=== PATIENT | male | born 1980 | race Caucasian/White ===

== ENCOUNTER 2019-01-31 15:31 | Emergency (ER) | payer MEDICAID, SELFPAY ==
[2018-10-13 15:13] VITALS: BMI 25.7
[2019-01-31 15:32] VITALS: BP 142/75; PULSE 113; RESP 18; TEMP 36.8; O2SAT 98; BMI 23.5
--- NOTE | 2019-01-31 15:38 | ED.VIS.GEN ---
History of Present Illness Chief Complaint: Wound Check Informant: Patient Onset: Days Context: Sudden Onset - Initial injury occurred Thursday Timing: Intermittent Quality: Patient sustained laceration medial mid right foot Location: Patient sustained laceration medial mid right foot Current Severity: Mild Maximum Severity: Mild Worsened by: Nothing Relieved by: Nothing Associated Symptoms: No associated symptoms Narrative: Patient is a 38-year-old male presents with laceration mid medial right foot. This occurred Thursday. He denies fever, chills or night sweats. Denies a traumatic fever, murmur, SBE, IV drug use or being immune suppressed. He does admit to smoking and alcohol use. He has no other complaints. Prior similar symptoms: No Recent Illness/Hospitalization: No - Past Medical History (1) PTSD (post-traumatic stress disorder) Status: Chronic (2) Frequent headaches Status: Chronic (3) History of traumatic brain injury Status: Acute Comment: 07/19/14 fell off a roof on his head. Past Medical History - Allergies and Home Meds Allergies/Adverse Reactions: Allergies No Known Allergies Allergy (Verified 01/31/19 15:33) Primary Care Physician: Camille Taylor MD [Primary Care Provider] - Prior records reviewed: Yes Surgical History: noncontributory - Status post craniotomy secondary to traumatic brain injury Lives: Alone Smoking Status: Current every day smoker Alcohol: Rare Drugs: None Review of Systems General: Denies: Chills, Fever, Malaise, Subjective, Sweats, Weight loss, - Cardiovascular: Denies: Chest pain Respiratory: Denies: Dyspnea Gastrointestinal: Denies: Nausea, Vomiting Neurological: Denies: Weakness, Parasthesia, Numbness Hematologic: Denies: Easy bruising, Easy bleeding Allergy: Denies: Uticaria Physical Exam Vital Signs/Narrative: Vital Signs Temp Pulse Resp BP Pulse Ox 01/31/19 15:32 98.3 F 113 H 18 142/75 H 98 Inital Vital Signs reviewed: Yes General: Well nourished, Well developed, No Acute Distress Head: Normocephalic, Trauma - Remote Eyes: Perrl, EOMI Cardiovascular: Regular rate, Regular rhythm Extremities: Nontender, No edema, - - DP and PT pulse are 2+ and symmetric Skin: Normal color, Rash - Area of erythema with warmth the size of a quarter medial mid right foot with no lymphangitis and no popliteal or inguinal lymphadenopathy., Trauma - 1.5 cm laceration with avulsed tissue Neurological: Alert, Oriented x3, Cranial nerves II-XII grossly intact, Normal Strength, Normal Sensation Psychological: Normal affect, Normal Mood Diagnostic/Tx/Re-eval - Medical Decision Making Patient has a laceration which has become infected. Patient was prescribed Bactrim and cephalexin. He was discharged with appropriate home-going instruction. He was instructed to have wound checked in 2 days. If unable to be checked by provider return to the ER for wound reevaluation. ED Disposition - Plan for ED Patient: Disposition: Home or Assisted Living Diagnosis: Infected laceration of skin Instructions: ED Laceration Infec Not Sutrd Prescriptions: Smz/Tmp Ds [Bactrim Ds] 1 tablet PO BID #14 tablet Cephalexin [Keflex] 500 mg PO 4X/DAY #28 capsule Referrals: Camille Taylor MD [Primary Care Provider] - 2 Days for wound check Additional Instructions: [facility]. If you are unable to be seen by your doctor in 2 days, return to the ER for wound reevaluation.
[2019-01-31] MEDS: Cephalexin 250 MG Capsule 500 MG PO (16:00)
[2019-01-31] MEDS: Smz/Tmp Ds Tablet 1 TABLET PO (16:00)
== END 2019-01-31 16:04 | disposition home or self-care (01) ==
PROVIDERS: Emergency Provider Emergency Medicine; Family Provider Internal Medicine; PCP Internal Medicine
DX: S91.311A Laceration without foreign body, right foot, initial encounter (principal); L08.9 Local infection of the skin and subcutaneous tissue, unspecified; X58.XXXA Exposure to other specified factors, initial encounter; Y93.9 Activity, unspecified; Y92.9 Unspecified place or not applicable; Y99.9 Unspecified external cause status; F43.10 Post-traumatic stress disorder, unspecified; F17.200 Nicotine dependence, unspecified, uncomplicated; Z79.899 Other long term (current) drug therapy; Z87.820 Personal history of traumatic brain injury
CPT/HCPCS: 99282

== ENCOUNTER 2019-03-20 12:54 | Emergency (ER) | payer MEDICAID, SELFPAY ==
[2019-03-20 12:55] VITALS: BP 131/85; PULSE 118; RESP 16; TEMP 37; O2SAT 99; BMI 23.6
--- NOTE | 2019-03-20 13:15 | RAD_ITS ---
STUDY: X-RAY - LEFT ELBOW REASON FOR EXAM: Male, 38 years old. Infection, swelling TECHNIQUE: AP and lateral view(s) of the elbow. COMPARISON: None. FINDINGS: Normal visualized humerus, radius and ulna. Normal radiocapitellar and ulnotrochlear articulations. There is significant soft tissue edema.. RAD/Elbow 2 Views IMPRESSION: Significant soft tissue edema suspicious for infectious/inflammatory process Electronically Signed: Jerry Carrizales, at 15:24 EDT Tel , Service support ,
--- NOTE | 2019-03-20 13:16 | ED.DCSUM_ITS ---
History of Present Illness Chief Complaint: Abscess Informant: Patient Onset: Days Current Severity: Mild Narrative: presents complaining of redness and inflammation and swelling over the left antecubital fossa region, indicates IV drug abuse, methamphetamines nothing else, he injected himself the other day he believes he got in the vein but is not sure and over the ensuing days he is noticed increased redness and swelling of the antecubital region of his arm,, he has no history of MRSA no direct trauma Past Medical History - Allergies and Home Meds Allergies/Adverse Reactions: Allergies No Known Allergies Allergy (Verified 03/20/19 12:58) Primary Care Physician: Camille Taylor MD [Primary Care Provider] - Past Medical History: - - IV drug abuse methamphetamine Surgical History: noncontributory - Status post craniotomy secondary to traumatic brain injury Smoking Status: Smoker, status unknown Review of Systems General: Denies: Chills, Fever, Sweats Eyes: Denies: Visual changes - bilaterally, Diplopia ENT: Denies: Rhinorrhea, Sore throat Cardiovascular: Denies: Chest pain, Palpitations Respiratory: Denies: Dyspnea, Cough, Dyspnea on exertion Gastrointestinal: Denies: Abdominal pain, Nausea, Vomiting, Diarrhea, Melena, Hematochezia Genitourinary: Denies: Dysuria, Hematuria, Frequency Musculoskeletal: Denies: Back pain, Extremity Pain Skin: Reports: Abscess. Denies: Rash, Wounds Neurological: Denies: Headache, Weakness, Numbness Physical Exam Vital Signs/Narrative: Vital Signs Temp Pulse Resp BP Pulse Ox 03/20/19 12:55 98.6 F 118 H 16 131/85 H 99 General: Well nourished, Well developed, No Acute Distress Head: Normocephalic, Atraumatic Eyes: Perrl, EOMI ENT: Moist mucous membranes, No rhinorrhea Neck: Supple, Nontender Cardiovascular: Regular rate, Regular rhythm, No murmurs Respiratory: No distress, CTA bilaterally, Chest nontender Abdomen: Soft, Nontender, Nondistended, Normal bowel sounds Back: Nontender, Normal Inspection Extremities: Nontender, No edema, - - Left antecubital area is inflamed there is redness there is edema extending into the distal humeral area and the more proximal forearm area, he is able to flex and extend the elbow, he is able to pronate and supinate the hand function is normal neurovascular function to the hand is normal there is certain the possibility of a cellulitis chemical reaction versus abscess Skin: Normal color, No rash Neurological: Alert, Oriented x3, Cranial nerves II-XII grossly intact, Normal Strength, Normal Sensation Psychological: Normal affect, Normal Mood Diagnostic/Tx/Re-eval - Medical Decision Making Given all of the above screening labs IV antibiotics Patient screening labs are generally unremarkable the white count 11 the sed rate is about 10 the CRP is 80 elbow x-ray shows soft tissue swelling no gas or foreign body I spoke with the hospitalist here for admission they indicate they feel he should be admitted to a facility that can have surgical back-up in case he requires debridement and currently at [facility] the plastic surgeon who would do that debridement is unavailable I then spoke with the orthopedic attending auctioneer tobacco at [facility] indicate they do not provide that type of procedure as that is usually done by plastic surgery at [facility]. I then spoke with the [facility] transfer line who explained to me that their plastic surgeon felt that the on-call hand surgeon should be contacted to discuss the case; I then spoke with the on-call [place] general hand surgeon who refused to accept the patient in transfer because he felt that this was in the scope of practice for the [facility] orthopedic surgeons even though I explained to him that this was not usually the case and that the plastic surgeon who normally handled these cases was unavailable. I then contacted [facility] transfer line and was unable to arrange for transfer to that facility I then spoke with the [facility] transfer line who accepted the patient in transfer to the [facility] emergency department under Dr. Posey and they would arrange for appropriate subspecialty consultation, I explained all this to the patient and he accepted transfer to [facility] Transfer stable Final impression Left antecubital infection cellulitis versus abscess related to IV drug abuse methamphetamine injection ED Disposition - Plan for ED Patient: Diagnosis: IV drug abuse, Abscess Referrals: Camille Taylor MD [Primary Care Provider] -
[2019-03-20 13:46] LABS: Absolute Lymphocyte Count 1.69 X10^3/ul (0.83-4.51); Absolute Neutrophil Count 8.2 X10^3/uL (2.0-7.7); Basophil# 0.02 X10^3/uL; Basophil% 0.2 % (0-1); Eosinophil# 0.12 X10^3/uL; Eosinophils% 1.1 % (0-5); Hematocrit 35.5 % (40-54); Hemoglobin 12.1 g/dl (13.0-16.5); Lymphocyte # 1.69 X10^3/ul (4.0); Lymphocyte % 15.2 % (19-41); Mean Corp Hgb Conc 34.1 g/gl (32-36); Mean Corpuscular Hgb 31.1 pg (27.0-32.0); Mean Corpuscular Volume 91.3 fL (80-94); Mean Platelet Vol. 7.7 fl (6.2-12.0); Monocyte# 1.05 X10^3/uL; Monocyte% 9.5 % (0-10); Neutrophil % 73.7 % (47-70); Platelet Count 185 K/mm3 (150-450); RBC Distribution Width CV 13.1 % (11.6-14.6); RBC Distribution Width SD 43.8 fl (35.1-43.9); Red Blood Count 3.89 M/mm3 (4.6-6.2); White Blood Count 11.1 K/mm3 (4.4-11.0)
[2019-03-20 13:58] LABS: POSITIVE COUNT NO; POSITIVE DIFFERENTIAL NO; POSITIVE MORPHOLOGY NO
[2019-03-20] MEDS: 0.9% Normal Saline 1,000 ML 1000 ML IV (13:59)
[2019-03-20 14:00] LABS: Anion Gap 5 (5-15); BUN 15 mg/dL (7-18); Calcium,Total 8.6 mg/dL (8.5-10.1); Chloride 104 mmol/L (98-107); Creatinine, Serum 0.88 mg/dL (0.70-1.30); EST Glomerular Filtration Rate 104 mL/min (>60); Est Glom Filt Rate - Afr Amer 125 mL/min (>60); Glucose 115 mg/dL (74-106); Potassium 3.8 mmol/L (3.5-5.1); Sodium Level 138 mmol/L (136-145)
--- NOTE | 2019-03-20 14:51 | NURSING ---
DR VAZQUEZ PRIDE
[2019-03-20 14:55] LABS: Erythrocyte Sedimentation Rate 7 mm/hr (0-15)
--- NOTE | 2019-03-20 15:37 | NURSING ---
CALLED [facility]. RN TALKING TO [facility]. FAXED FACESHEET
--- NOTE | 2019-03-20 16:22 | NURSING ---
ACCEPTED AT [facility]
--- NOTE | 2019-03-20 16:31 | NURSING ---
GOING TO ER AT [facility]
--- NOTE | 2019-03-20 16:34 | NURSING ---
CALLED [facility] FOR TRANSPORT. NO SQUADS CALLED [facility] FOR TRANSPORT, NONE AVAILABLE CALLED [facility] FOR TRANSPORT, NONE AVAILABLE
--- NOTE | 2019-03-20 16:38 | NURSING ---
CALLED [facility] FOR TRANSPORT. [facility]
[2019-03-20 16:57] VITALS: BP 121/80; PULSE 96; RESP 18; TEMP 37.5; O2SAT 99
--- NOTE | 2019-03-20 17:00 | NURSING ---
CALLED [facility] FOR [facility]SPORT, CAN'T CALLED [facility] FOR TRANSPORT, CANT
--- NOTE | 2019-03-20 17:12 | NURSING ---
NO SQUADS AVAILABLE. DR FOWLER MADE AWARE.
--- NOTE | 2019-03-20 17:19 | NURSING ---
CALLED [facility] OUT OF [place]. [phone]. THEY DON'T HAVE ANY SQUADS
[2019-03-20] MEDS: 0.9% Normal Saline 1,000 ML 999 ML IV (17:29)
--- NOTE | 2019-03-20 17:45 | NURSING ---
CALLED [facility] FOR TRANSPORT. NEED TO [place]PL[place] OUT BEFORE LEAVING. ETA IS [phone]
--- NOTE | 2019-03-20 18:20 | NURSING ---
spoke with Willow at [facility] transfer line per her, report does not need to be called to [facility] ED, they have our information if they have questions. Informed her that transport should be here at 1945.
[2019-03-20] MEDS: Ondansetron 4 MG/2 ML Vial IV (19:06)
[2019-03-20] MEDS: morphine 8 MG/ML Syringe IV (19:07)
[2019-03-20 19:21] VITALS: BP 112/70; PULSE 101; RESP 18; TEMP 37.2; O2SAT 97
[2019-03-20 20:51] VITALS: BP 122/80; PULSE 97; RESP 18; O2SAT 99
== END 2019-03-20 21:34 | disposition short-term general hospital (02) ==
LOC: ED 13:41
PROVIDERS: Emergency Provider Emergency Medicine; Family Provider Internal Medicine; PCP Internal Medicine
DX: L08.9 Local infection of the skin and subcutaneous tissue, unspecified (principal); R22.32 Localized swelling, mass and lump, left upper limb; F15.10 Other stimulant abuse, uncomplicated; F17.200 Nicotine dependence, unspecified, uncomplicated
CPT/HCPCS: 73070; 80048; 85025; 85652; 86140; 96361; 96365; 96367; 96375; 99282; J7030; J7050; A4216; J2405

== ENCOUNTER → 2019-09-13 12:44 | Outpatient (CLI) | payer MEDICAID, SELFPAY ==
[2019-09-13 14:18] LABS: AST(SGOT) 16 U/L (15-37); Alanine Aminotransfer ALT/SGPT 26 U/L (16-61); Albumin, Serum 4.2 g/dL (3.2-5.0); Alkaline Phosphatase 59 U/L (45-117); Globulin 3.4 g/dL (2.2-4.2); Protein, Total 7.6 g/dL (6.4-8.2)
[2019-09-15 09:57] LABS: Hepatitis B Surface Antigen Non-Reactive (Nonreactive); Hepatitis C Antibody Non-Reactive (Nonreactive)
== END ==
PROVIDERS: Family Provider Internal Medicine; PCP Internal Medicine
DX: R63.0 Anorexia (principal); R53.81 Other malaise; R11.0 Nausea
CPT/HCPCS: 36415; 80076; 86803; 87340

== ENCOUNTER 2019-10-17 10:38 | Emergency (ER) | payer MEDICAID, SELFPAY ==
[2019-09-27 14:56] VITALS: BMI 23.6
[2019-10-17 10:39] VITALS: BP 142/100; PULSE 74; RESP 16; TEMP 36.6; O2SAT 99; BMI 26.4
--- NOTE | 2019-10-17 10:50 | ED.DCSUM_ITS ---
History of Present Illness Chief Complaint: Headache Informant: Patient Onset: Today Context: Sudden Onset Timing: Continuous Quality: Sharp Location: Bilateral Current Severity: Moderate Maximum Severity: Severe Worsened by: Light Relieved by: Nothing Associated Symptoms: Nausea and vomiting Narrative: Patient is a 39-year-old male who had a traumatic brain injury with subdural requiring craniotomy on the right. Patient had headaches since. He has not seen a neurologist. He is scheduled to see a neurologist and neck 7 to 14 days. He is on no medication for chronic headaches. He denies double vision, blurred vision loss of vision. Denies rhinorrhea, congestion or postnasal drainage. Denies sore throat. Nuys neck pain. Denies paresthesia, anesthesia or motor weakness. He reports problems with balance for the last several weeks. He denies trouble speech or swallowing. He is present on no medication. He has no other complaints. The only difference with regards to today's headache is the character of the pain. Prior similar symptoms: Yes Recent Illness/Hospitalization: No - Past Medical History (1) History of traumatic brain injury Status: Acute Comment: 07/19/14 fell off a roof on his head. (2) Frequent headaches Status: Chronic (3) PTSD (post-traumatic stress disorder) Status: Chronic Past Medical History - Allergies and Home Meds Allergies/Adverse Reactions: Allergies No Known Allergies Allergy (Verified 10/17/19 10:39) Primary Care Physician: Camille Taylor MD [Primary Care Provider] - Prior records reviewed: Yes Surgical History: noncontributory - Status post craniotomy secondary to traumatic brain injury Lives: Alone Smoking Status: Current every day smoker Alcohol: Rare Drugs: None Review of Systems General: Denies: Chills, Fever, Sweats Eyes: Denies: Visual changes - bilaterally, Blurred Vision - bilaterally, Diplopia ENT: Denies: Bilateral ear pain, Rhinorrhea, Sore throat Cardiovascular: Denies: Chest pain, Palpitations Respiratory: Denies: Dyspnea, Cough, Dyspnea on exertion Gastrointestinal: Denies: Abdominal pain, Nausea, Vomiting, Diarrhea, Melena, Hematochezia Genitourinary: Denies: Dysuria, Hematuria, Frequency Musculoskeletal: Denies: Myalgias, Arthralgias, Neck pain, Back pain, Swelling, Extremity Pain Skin: Denies: Rash, Wounds Neurological: Reports: Headache. Denies: Weakness, Parasthesia, Numbness, -, - - He reports problems with balance. Psych: Reports: Depression Endocrine: Denies: Polyuria, Polydipsia Hematologic: Denies: Easy bruising, Easy bleeding Physical Exam Vital Signs/Narrative: Vital Signs Temp Pulse Resp BP Pulse Ox 10/17/19 10:39 97.8 F 74 16 142/100 H 99 Inital Vital Signs reviewed: Yes General: Well nourished, Well developed, No Acute Distress Head: Normocephalic, Atraumatic Eyes: Perrl, EOMI. Negative for: Pale conjunctiva, Scleral icterus ENT: Moist mucous membranes, No rhinorrhea, TM's clear. Negative for: Nasal congestion, Sinus tenderness Neck: Supple, Nontender, No lymphadenopathy, No JVD Cardiovascular: Regular rate, Regular rhythm, No murmurs, Normal S1, Normal S2 Respiratory: No distress, CTA bilaterally, Chest nontender Abdomen: Soft, Nontender, Nondistended, Normal bowel sounds Back: Nontender, Normal Inspection. Negative for: CVA tenderness Extremities: Nontender, No edema Skin: Normal color, No rash, No Trauma, - - There are no lesions to suggest shingles.. Negative for: Cyanosis, Diaphoresis, Jaundice Neurological: Alert, Oriented x3, Cranial nerves II-XII grossly intact, Normal Strength, Normal Sensation, Normal DTR, Normal Gait, - - Cerebellar testing is normal. Psychological: Normal affect, Normal Mood Diagnostic/Tx/Re-eval - Medical Decision Making Street of frequent headaches for the past 5 years will treat for traumatic m igraine. He was treated with 25 mg of Benadryl, 10 mg of Reglan and 50 mg of Toradol IV push. Plan is to reassess in 30 to 60 minutes. Patient was reassessed at 1145. Patient reports his headache has resolved. Plan is to discharge to home. He was instructed to follow-up with his primary care provider Dr. Taylor to discuss treatment options for chronic migraine headaches. ED Disposition - Plan for ED Patient: Disposition: Home or Assisted Living Diagnosis: Headache, chronic migraine without aura, intractable Instructions: ED, Migraine (Classical) Referrals: Camille Taylor MD [Primary Care Provider] - 1 Week
[2019-10-17] MEDS: Ketorolac 30 MG/ML Syringe 15 MG IV (11:01)
[2019-10-17] MEDS: Metoclopramide 10 MG/2 ML Vial IV (11:01)
[2019-10-17] MEDS: DiphenhydrAMINE 50 MG/ML Syringe 25 MG IV (11:02)
== END 2019-10-17 11:53 | disposition home or self-care (01) ==
PROVIDERS: Emergency Provider Emergency Medicine; PCP Internal Medicine
DX: G43.719 Chronic migraine without aura, intractable, without status migrainosus (principal); F17.200 Nicotine dependence, unspecified, uncomplicated; Z87.820 Personal history of traumatic brain injury
CPT/HCPCS: 96374; 96375; 99282; A4216

== ENCOUNTER → 2019-11-04 | Outpatient (CLI) | payer MEDICAID, SELFPAY ==
--- NOTE | 2019-11-04 | VAS_PTH ---
PATIENT: MARISOL PLAZA LOC: [facility] U#:[id number] AGE/SX: 39/M ROOM: RE11/04/[address]: Dr. Antonio Robledo MD : 1980 BED: DIS: 11/04/2019 SPEC #: [id number] RECD: 11/04/19 15:59 STATUS: NIKOLAY MICHAEL #: [id number] MARIAH: 11/04/19 00:[address]: Antonio Robledo DEPT: SURGICAL PATHOLOGY RECD BY: Brad Renteria ENTERED: 11/07/19 09:13 SP TYPE: VAS OTHR DR: Dr. Camille Taylor MD Tissues: Vas deferens, NOS Procedures: Surgery Specimen Level II HEADER OPERATION: Bilateral partial vasectomy PRE-OP DIAGNOSIS: Sterilization TISSUE SUBMITTED: Right vas deferens MICROSCOPIC DIAGNOSIS Right vas deferens, partial vasectomy: Completely transected segment of vas deferens, no pathologic diagnosis. SJ:kalyani 11/08/19 MICROSCOPIC DESCRIPTION Slides are reviewed. GROSS DESCRIPTION Received is one container designated right vas deferens. The specimen consists of a cylindrical segment of pink-arrington soft tissue measuring 1 cm in length and 0.2 cm in maximum diameter. The specimen is serially sectioned and totally submitted in one cassette. / AM:kalyani 11/07/19 TC:4 CPT: 63273
[2019-11-04 13:51] VITALS: BMI 26.4
== END | disposition home or self-care (01) ==
LOC: LABSPEC 16:16
PROVIDERS: PCP Internal Medicine; Referring Provider Surgery; Visit Provider Surgery
DX: Z30.2 Encounter for sterilization (principal)
CPT/HCPCS: 88302

== ENCOUNTER 2020-01-24 10:04 | Day surgery (SDC) | payer MEDICAID, SELFPAY ==
--- NOTE | 2019-11-04 02:03 | HP_ITS ---
ADDENDUM by Antonio Robledo MD on 11/08/19 at 1029 Addendum entered and electronically signed by Antonio Robledo MD 11/08/19 10:29: During room clean up it was noted that the patient's specimen had gone missing. The left vas which was contained in a towel clip as well as a few other instruments from the tray were missing. The right vas was submitted as specimen but the left vas is now missing and unable to be submitted. The right and left vas were removed in the same manner but only the right vas will be submitted for specimen. Intake Chief Complaint: desires sterilization Allergies No Known Allergies Allergy (Verified 11/04/19 13:51) Medications varenicline 0.5 mg (11)-1 mg (42) tablets in a dose pack tab PO 11/03/19 [History Confirmed 11/04/19] tramadol 50 mg tablet 50 mg PO Q6H #10 tab 11/04/19 [Rx Confirmed 11/04/19] Assessment & Plan Problems 1. Change in stool caliber R19.5 2. Family history of malignant neoplasm of colon in first degree relative diagnosed when younger than 60 years of age Z80.0 3. Encounter for sterilization Z30.2 Plan - Dr. Antonio Robledo MD The patient underwent bilateral partial vasectomy in the office today. He tolerated the procedure well. I instructed him once again that he is not sterile until he has had 2- sperm sample analysis. He will follow-up in 1 week. I will also schedule the patient for colonoscopy due to family history as well as change in stool habits. I explained endoscopy in detail to the patient. I explained the risks including but not limited to stroke or heart attack with anesthesia, perforation of the GI tract, bleeding, infection. I explained that any of these could necessitate further emergency surgery. The patient understands and all questions were answered sufficiently. The patient wishes to proceed with procedure. Antonio Robledo MD Pager: [facility] [address] [place] [address], [address] [place] [address] Office: Orders Orders: Colonoscopy 11/04/19 R19.5, Z80.0 Vasectomy 11/04/19 Z30.2 Medications New: tramadol (Ultram) 50 mg PO Q6H 10 tabs 0RF 11/08/19 1029 <Electronically signed by Antonio sierra MD> Date _ Antonio Robledo MD cc: Camille Taylor MD ~* Signed Intake Vital Signs 11/04/19 BMI 26.4 Intake Visit Reasons: Vasectomy (CSI) Chief Complaint: desires sterilization Chemical Laboratory Technician Required: No Is patient in pain?: No Allergies No Known Allergies Allergy (Verified 11/04/19 13:51) Medications varenicline 0.5 mg (11)-1 mg (42) tablets in a dose pack tab PO 11/03/19 [History Confirmed 11/04/19] tramadol 50 mg tablet 50 mg PO Q6H #10 tab 11/04/19 [Rx Confirmed 11/04/19] PFSH Medical History PTSD (post-traumatic stress disorder) (Chronic) Frequent headaches (Chronic) Chronic back pain (Chronic) History of traumatic brain injury (Acute) Anxiety and depression (Acute) Back problem (Acute) History of blood transfusion (Acute) desire for sterilization (Acute) Surgical History History of brain surgery (Acute) Family History Father Colon cancer Other Anxiety History of blood transfusion Social History (Updated 11/04/19 @ 14:[address] Antonio Robledo MD) Smoking Status: Current every day smoker alcohol intake: never substance use type: does not use what type of physical activity do you participate in: none HPI HPI HPI: MARISOL PLAZA, is a 39 M who presents to the office today for HPI HPI Surgical H&P: Yes HPI: MARISOL PLAZA, is a 39 M who presents to the office today for vasectomy. The patient also is in need of colonoscopy. The patient's father had colon cancer at age 58. The patient has also noted change in his stool. He notes that his stool has changed in caliber. He is not having any blood in his stool or abdominal pain. He has never had a colonoscopy in the past. ROS General General: No weight change or fatigue Cardio Cardiovascular: No murmur, pacemaker, heart disease, atrial fibrillation, high blood pressure, heart attack, heart stent, palpitations, shortness of breat with exertion or chest pain Psych Psychiatric: No depression or anxiety Resp Respiratory: No shortness of breath, No sleep apnea, No cough, No COPD, No asthma, No emphysema, No wheezing Gastro Gastrointestinal: No abdominal pain, No nausea or vomiting, No diarrhea, No constipation, No blood in stool, No acid reflux, No hemorrhoids, No ulcers, No gallbladder problem, No black,tarry stools Additional Details: Change in bowel habits. His stool has changed in caliber. Terry Hematologic: No blood thinners Exam Const General: cooperative Orientation: alert, oriented x3 Resp Effort & Inspection: normal respiratory effort Auscultation: clear to auscultation bilaterally Cardio Rate: regular rate Rhythm: regular rhythm Heart Sounds: no murmurs GI Inspection: non-distended Palpation: soft, nontender Office Procedures Procedure Time Out Time Out Informed consent given: Yes Consent signed: Yes Time out checklist: patient, procedure, site marked/identified, positioning of patient, supplies available, allergies confirmed, team agrees on procedure Time out staff in room: Yes Time out verified: Yes Time out date: 11/04/19 Time out time: 13:00 Vasectomy Provider Documentation Provider Documentation: Bilateral partial vasectomy Time out and informed consent was obtained. The patient was taken to the procedure room and placed supine on the table. Bilateral scrotal areas were clipper and Betadine prepped. 1% lidocaine mixed 50-50 with 0.5% Marcaine was utilized as a local anesthetic. Less than a total of 10 cc was utilized. Bilateral scrotal incisions were created. Sharp and blunt dissection was used to identify the vas deferens. A segment was cleared, the ends were crushed, and segments were excised. The ends were secured with 3-0 chromic inverted and resecured. The skin edges were approximated with simple sutures of 3-0 chromic. Topical antibiotic ointment and gauze applied. He was given activity and wound care instructions. The specimens are submitted in formalin for analysis. He is scheduled to return to my office in 1 week's time. He has been provided analgesics as prescribed. He is well aware that he has not yet cleared from utilizing other means of control. He is aware that 2 negative consecutive semen counts will be required prior to releasing him from utilizing other means of control. He is aware that this is his responsibility to complete. He has had an opportunity to ask and have questions answered. Blood loss minimal. Specimens segments of vas deferens. Complications none. Vasectomy 57792 Vasectomy Assessment & Plan Problems 1. Change in stool caliber R19.5 2. Family history of malignant neoplasm of colon in first degree relative diagnosed when younger than 60 years of age Z80.0 3. Encounter for sterilization Z30.2 Plan The patient underwent bilateral partial vasectomy in the office today. He tolerated the procedure well. I instructed him once again that he is not sterile until he has had 2- sperm sample analysis. He will follow-up in 1 week. I will also schedule the patient for colonoscopy due to family history as well as change in stool habits. I explained endoscopy in detail to the patient. I explained the risks including but not limited to stroke or heart attack with anesthesia, perforation of the GI tract, bleeding, infection. I explained that any of these could necessitate further emergency surgery. The patient understands and all questions were answered sufficiently. The patient wishes to proceed with procedure. Antonio Robledo MD Pager: [facility] [address] [place] [address], [address] [place] [address] Office: Orders Orders: Colonoscopy Today R19.5, Z80.0 Vasectomy Today Z30.2 Medications New: tramadol (Ultram) 50 mg PO Q6H 10 tabs 0RF Coding Level of Care Code Attention Corporate Counsel Diagnoses Change in stool caliber R19.5 Family history of malignant neoplasm of colon in first degree relative diagnosed when younger than 60 years of age Z80.0 Encounter for sterilization Z30.2 Additional Codes Vasectomy (22265) 11/04/19 1404 <Electronically signed by Antonio sierra MD> Date _ Antonio Robledo MD
[2019-11-04 13:51] VITALS: BMI 26.4
--- NOTE | 2020-01-23 23:09 | PCM.HP.BLA ---
History and Physical Date of Admission: 01/24/20 HISTORY OF PRESENT ILLNESS 39 year old man presents with a soft tissue mass right lateral cheek by lateral canthal area that has been increasing in size over the last several months and has become raised in configuration. He denies trauma. He denies fever. He denies recent infection. He denies any visual complaints. He presents at this time for further evaluation and treatment. PAST MEDICAL HISTORY PTSD (post-traumatic stress disorder) Frequent headaches Chronic back pain History of traumatic brain injury Anxiety and depression Back problem History of blood transfusion desire for sterilization PAST SURGICAL HISTORY brain surgery ALLERGIES No Known Allergies MEDICATIONS varenicline tramadol FAMILY HISTORY Father - Colon cancer Other - Anxiety, History of blood transfusion SOCIAL HISTORY Smoking Status: Current every day smoker alcohol intake: never substance use type: does not use REVIEW OF SYSTEMS General - Denies fever and weight loss. Has fatigue. Eyes - Denies cataracts and glaucoma. ENT - Denies nasal congestion and sore throat. Endocrine - Denies excessive thirst and urination. Skin - Denies suspicious lesions and skin cancer. Musculoskeletal - Denies joint pain, joint stiffness, weakness of muscles and joints, and arthritis. Has back pain. Neuro - Has headaches. Has lightheadedness. Cardiovascular - Denies chest pain and shortness of breath with exertion. Has fatigue and lightheadedness. Psych - Denies anxiety. Has depression. Respiratory - Denies chronic cough and shortness of breath. Patient is a smoker. Gastrointestinal - Denies nausea, vomiting, diarrhea, and constipation. Hematologic - Denies abnormal bruising and bleeding. Genitourinary - Denies hematuria and urinary frequency. PHYSICAL EXAMINATION General - Alert and Oriented. HEENT - PERRL. EOMI. Throat is clear. On the right lateral cheek by lateral canthal area is a soft tissue mass that measures 11 mm. It is mobile. Some adherence to the overlying skin. No recent infection. No ulceration. Mass is nontender. Neck - Supple and nontender. No cervical adenopathy. No suspicious lesions noted. Lungs - Clear to auscultation. Heart - Regular rate and rhythm. Abdomen - Soft and nondistended. Extremities - FROM. No axillary adenopathy. Radial pulses are palpable. No suspicious lesions noted. Neuro - CN II-XII grossly intact. Psych - Normal mood and affect. ASSESSMENT 1. 11 mm soft tissue mass right lateral cheek by lateral canthal area. 2. Smoker. PLAN Recommend excision of this soft tissue mass right lateral cheek by lateral canthal area and send it to Pathology for analysis to rule out carcinoma. Depending on how much skin needs to be excised that is adherent to the mass to minimize recurrence, a local skin flap may be necessary. He voices understanding. Surgery will be done on an outpatient basis under local anesthesia and IV sedation. Patient was informed of the risks and complications of the procedure including alternatives to surgery. These were discussed with the patient personally. Patient voices understanding and wishes to proceed. Some of the risks and complications were included in a form from the [employer]. Encouraged patient to stop smoking as it may have deleterious effects on wound healing. Due to the Coronavirus pandemic, other risks and complications include but are not inclusive of dominic the Coronavirus despite taking all standard necessary precautions. He voices understanding and wishes to proceed.
[2020-01-24] VITALS (13 sets, daily range): BP systolic 81–114; BP diastolic 47–78; PULSE 55–72; RESP 15–18; TEMP 36–36.6; O2SAT 93–100; BMI 25.6
[2020-01-24] MEDS: Lactated Ringers 1,000 ML 100 ML IV ×2 (10:50→12:19)
[2020-01-24] MEDS: Mupirocin Ointment 22gm Tube 1 APPLIC (11:28)
--- NOTE | 2020-01-24 11:30 | MASS_PTH ---
PATIENT: MARISOL PLAZA LOC: [facility] U#:[id number] AGE/SX: 39/M ROOM: RE01/24/[address]: Dr. Graham Montes MD : 1980 BED: DIS: 01/24/2020 SPEC #: [id number] RECD: 01/24/20 13:45 STATUS: NIKOLAY MICHAEL #: [id number] MARIAH: 01/24/20 11:[address]: Graham Montes DEPT: SURGICAL PATHOLOGY RECD BY: Colleen Maradiaga ENTERED: 01/25/20 09:21 SP TYPE: Mass OTHR DR: Dr. Camille Taylor MD Tissues: Skin of face, NOS Procedures: Surgery Specimen Level III HEADER OPERATION: Excision soft tissue mass, lateral cheek by lateral canthal area PRE-OP DIAGNOSIS: 11 mm soft tissue mass right lateral cheek by lateral canthal area TISSUE SUBMITTED: Right cheek soft tissue mass MICROSCOPIC DIAGNOSIS Right cheek soft tissue mass, excision: Epidermal inclusion cyst. NOEMY:kalyani 01/26/20 MICROSCOPIC DESCRIPTION Slides are reviewed. GROSS DESCRIPTION Received in fixative is one container labeled with the patient's name and designated right cheek soft tissue mass. The specimen consists of an ovoid fragment of light arrington-white soft tissue measuring 1.2 x 1 x 0.1 cm. The specimen is bisected and totally submitted in one cassette. / AM:kalyani 01/25/20 TC:5 CPT: 09718
--- NOTE | 2020-01-24 11:44 | OP.PCM_ITS ---
Report of Operation Date of Procedure: 01/24/20 Pre-Operative Diagnosis: 1. 11 mm soft tissue mass right lateral cheek by lateral canthal area. 2. Smoker. Post-Operative Diagnosis: Same. Surgery/Procedure Performed:: Excision 11 mm soft tissue mass right lateral cheek by lateral canthal area with layered closure. Description of Surgical Findings:: 39 year old man presents with a soft tissue mass right lateral cheek by lateral canthal area that has been increasing in size over the last several months and has become raised in configuration. He denies trauma. He denies fever. He denies recent infection. He denies any visual complaints. Patient was informed of the risks and complications of the procedure including alternatives to surgery. These were discussed with the patient personally. Patient voices understanding and wishes to proceed. Some of the risks and complications were included in a form from the [employer]. Encouraged patient to stop smoking as it may have deleterious effects on wound h ealing. We discussed the current risks associated with COVID-19. While it is understood that there is a community spread of COVID-19, the risk of dominic COVID-19 while at [facility] ([facility]) is very low; however, the risk cannot be completely mitigated because of the community spread of the disease. We discussed in detail the risk of exposure to and/or potential harm posed by the COVID-19 virus with having a surgery/procedure at this time versus the risk of delaying the surgery/procedure. It is not possible to know either the risk of delaying the surgery or procedure or chance of getting an infection with perfect accuracy, but a joint decision was made to proceed at this time with the scheduled surgery/procedure as indicated on the consent form. Patient was n otified that we will need to comply with any screening or testing [facility] wishes to perform or that surgery may be delayed for any positive results. medical collector: None Type of Anesthesia:: Local MAC - xylocaine with epinephrine and IV sedation. Specimen's removed: Soft tissue mass right lateral cheek by lateral canthal area to Pathology. Drains: None. Estimated Blood Loss (mL): 5 ml. Description of Procedure: Patient was taken to OR in supine position and was given IV sedation. The face was prepped and draped in the usual fashion. SCD's were placed for DVT prophylaxis. Perioperative antibiotics were given intravenously. The soft tissue mass right lateral cheek by lateral canthal area was infiltrated with xylocaine and epinephrine. After waiting 5 minutes for the anesthetic to take effect, I made an oblique elliptical incision through the subcutaneous tissue until the mass was seen. Some adherence to the skin was excised. The mass was dissected free down to the muscle. Some surrounding scar tissue was excised. The mass was sent to Pathology for analysis to rule out carcinoma. The wound was irrigated with saline. Hemostasis was obtained with electrocautery. The wound was closed in a layered fashion with 5-0 Monocryl interrupted sutures for the deep dermis and subcutaneous tissue. The skin was approximated with 6-0 Prolene simple interrupted sutures. Steri-strips were applied followed by antibiotic ointment. Patient tolerated the procedure well and was sent to PACU in satisfactory condition. Patient will be sent home on antibiotics and pain medication. He will keep his head elevated during the initial postoperative period. Patient will followup in a week for a wound check and for discussion of the pathology report and for removal of the sutures. Grafts/Implants Used: None. - Complications None. - Admit VTE Documentation VTE Present on Admission: No VTE Mechan Device Prophylaxis: SCD's VTE Pharm Prophylaxis ordered?: No Surgery Charges CPT - 37409 ICD-10 - R22.0, F17.200
--- NOTE | 2020-01-24 11:58 | DCINST_ITS ---
You will use the following diet at home:: No restrictions Discharge Activity: May not drive while taking narcotic pain medications., May Shower - in two days., - - keep head elevated. no heavy lifting. May shower in (days): 2 May resume sexual activity in: No Restrictions Ice area for (Minutes): 5 - as needed for facial swelling. Weight Bearing Status: Weight bearing as tolerated Lifting Restrictions: 20 lbs. Keep extremity elevated above heart level: - - elevate head. Call your doctor if your incision/area has: Continuous Slow Oozing, Sudden Increased Bleeding, Increased Pain/ Swelling, Increased Redness, Foul Smelling Discharge, Swelling at the incision site Call your doctor if you observe: Fever of 101 or Higher, Coldness, Increased Pain, Shortness of breath, Chest pain, Calf discomfort, Uncontrolled pain Suture Line Care: - - apply antibiotic ointment to suture line daily. Cleanse incision/area with: - - ay get incision wet in the shower in two days. Allergies/Adverse Reactions: Allergies No Known Allergies Allergy (Verified 01/24/20 10:35) Medications to take at Discharge Buprenorphine HCl/Naloxone HCl [Buprenorp-Nalox 8-2 mg Sl Film] 2 ea SL DAILY 01/19/20 Clindamycin HCl [Cleocin] 300 mg PO TID #15 cap 01/24/20 Oxycodone HCl/Acetaminophen [Percocet 5/325] 1 tablet PO Q6H PRN PRN 5 Days #20 tablet 01/24/20 The following prescriptions were given: Clindamycin HCl [Cleocin] 300 mg PO TID #15 cap Transmission Status: Pending to [facility] Oxycodone HCl/Acetaminophen [Percocet 5/325] 1 tablet PO Q6H PRN PRN 5 Days #20 tablet PRN Reason: Pain Score 4-5/10 Transmission Status: Sent to [facility] Primary Care Physician: Camille Taylor MD [Primary Care Provider] - Test Results: Test results from this visit will be discussed in further detail at your follow- up appointment, if applicable. Please Follow Up With: Graham Montes MD When: one week. call [phone] for appt. Proposed Discharge Date: 01/24/20
== END 2020-01-24 13:19 | disposition home or self-care (01) ==
LOC: SDC 10:05 → AC 10:06
PROVIDERS: PCP Internal Medicine; Referring Provider Surgery; Visit Provider Surgery
PROC: (CPT 21011; principal; 2020-01-24 11:15)
DX: L72.0 Epidermal cyst (principal); F32.9 Major depressive disorder, single episode, unspecified; F41.9 Anxiety disorder, unspecified; F43.10 Post-traumatic stress disorder, unspecified; F17.200 Nicotine dependence, unspecified, uncomplicated
CPT/HCPCS: 00300; 21011; 88304; 88305; J7120

== ENCOUNTER → 2020-04-11 13:40 | Outpatient (CLI) | payer MEDICAID, SELFPAY ==
[2020-04-11 13:08] VITALS: BMI 25.6
[2020-04-11 15:21] LABS: Absolute Lymphocyte Count 2.34 X10^3/uL (0.83-4.51); Absolute Neutrophil Count 4.7 X10^3/uL (2.0-7.7); Basophil# 0.03 X10^3/uL; Basophil% 0.4 % (0-1); Eosinophil# 0.11 X10^3/uL; Eosinophils% 1.5 % (0-5); Hematocrit 38.8 % (40-54); Hemoglobin 13.2 g/dL (13.0-16.5); Lymphocyte # 2.34 X10^3/ul (4.0); Lymphocyte % 30.9 % (19-41); Mean Corpuscular Hgb 31.7 pg (27.0-32.0); Mean Platelet Vol. 8.7 fl (6.2-12.0); Monocyte% 5.3 % (0-10); NRBC Flagged by Analyzer 0 % (0-5); Neutrophil # 4.68 X10^3/uL (2.7-7.7); Neutrophil % 61.6 % (47-70); Platelet Count 250 K/mm3 (150-450); RBC Distribution Width CV 11.8 % (11.6-14.6); Red Blood Count 4.17 M/mm3 (4.6-6.2); White Blood Count 7.6 K/mm3 (4.4-11.0)
[2020-04-11 16:02] LABS: ALB/GLOB Ratio 1.4 RATIO (0.9-2.4); AST(SGOT) 23 U/L (15-37); Alanine Aminotransfer ALT/SGPT 34 U/L (16-61); Albumin, Serum 4.3 g/dL (3.2-5.0); Alkaline Phosphatase 65 U/L (45-117); Anion Gap 6 (5-15); BUN 20 mg/dL (7-18); BUN/Creat Ratio 20.1 RATIO (10-20); Calcium,Total 8.9 mg/dL (8.5-10.1); Chloride 106 mmol/L (98-107); Cholesterol 153 mg/dL (200); EST Glomerular Filtration Rate 89 mL/min (>60); Est Glom Filt Rate - Afr Amer 108 mL/min (>60); Globulin 3.1 g/dL (2.2-4.2); Glucose 106 mg/dL (74-106); High Density Lipoprotein 53 mg/dL; Potassium 3.8 mmol/L (3.5-5.1); Protein, Total 7.4 g/dL (6.4-8.2); Sodium Level 138 mmol/L (136-145); Thyroid Stim Hormone (TSH) 0.66 uIU/mL (0.358-3.74); Triglycerides 163 mg/dL; Very Low Density Lipoprotein 33 mg/dL (5-40)
== END ==
PROVIDERS: PCP Internal Medicine; Referring Provider Nurse Practitioner Family; Visit Provider Nurse Practitioner Family
DX: R63.2 Polyphagia (principal); R23.2 Flushing; R61 Generalized hyperhidrosis; Z13.220 Encounter for screening for lipoid disorders
CPT/HCPCS: 36415; 80053; 80061; 84443; 85025

== ENCOUNTER 2021-01-01 18:53 | Emergency (ER) | payer MEDICAID, SELFPAY ==
[2020-11-14 12:35] VITALS: BMI 26.9
[2021-01-01 18:54] VITALS: BP 131/80; PULSE 86; RESP 16; TEMP 36; O2SAT 99; BMI 25.7
--- NOTE | 2021-01-01 19:35 | ED.VIS.HA ---
History of Present Illness Chief Complaint: Headache Informant: Patient Onset: Hours Context: Sudden Timing: Continuous Quality: Similar Prior Headaches, Throbbing Location: Initially started on the right now bilateral Current Severity: Moderate Maximum Severity: Severe Worsened by: Sound and light Relieved by: Nothing Associated Symptoms: Nausea, Photophobia. Negative for: Fever, Vomiting, Sore Throat, Sinus Pressure, Numbness, Tingling, Preceding Aura, Visual Changes, Blurred Vision, Visual Loss Injury: - - History of trauma, subdural hematoma Narrative: Patient is a 40-year-old male with history of traumatic migraines who presents with increased frequency of headaches. This headache is slightly worse than others. He does report sonophobia and photophobia. He denies fever, chills night sweats. Denies double vision or blurred vision. Denies neck stiffness. He denies rhinorrhea, congestion or postnasal drainage. No sore throat. No difficulty swallowing or with speech. He denies cardiac respirations. Does report nausea without vomiting or diarrhea. He denies paresthesia, anesthesia motors. Denies problems with balance. Prior similar symptoms: Yes Recent Illness/Hospitalization: No - Past Medical History (1) History of traumatic brain injury Status: Acute Comment: 07/19/14 fell off a roof on his head. (2) Frequent headaches Status: Chronic (3) PTSD (post-traumatic stress disorder) Status: Chronic (4) Smoker Status: Chronic Past Medical History - Allergies and Home Meds Allergies/Adverse Reactions: Allergies No Known Allergies Allergy (Verified 01/01/21 18:55) Primary Care Physician: Camille Taylor MD [Primary Care Provider] - Prior records reviewed: Yes Surgical History: - - Drainage of subdural hematoma Lives: With Family Smoking Status: Current every day smoker Alcohol: None Drugs: None Review of Systems General: Denies: Chills, Fever, Malaise, Subjective Eyes: Reports: - - Photophobia. Denies: Visual changes - bilaterally, Blurred Vision - bilaterally ENT: Reports: - - Denies tinnitus or decreased hearing. Reports sonophobia. Denies: Bilateral ear pain, Rhinorrhea, Sore throat Cardiovascular: Denies: Chest pain, Palpitations Respiratory: Denies: Dyspnea, Cough, Dyspnea on exertion Gastrointestinal: Reports: Nausea. Denies: Abdominal pain, Vomiting, Diarrhea, Constipation, Melena, Hematochezia, -, - Genitourinary: Denies: Dysuria, Hematuria, Frequency Musculoskeletal: Denies: Myalgias, Arthralgias, Neck pain, Back pain, Swelling, Extremity Pain, -, - Skin: Denies: Rash, Wounds Neurological: Reports: Headache. Denies: Weakness, Parasthesia, Numbness Endocrine: Denies: Polyuria, Polydipsia Physical Exam Vital Signs/Narrative: Vital Signs Temp Pulse Resp BP Pulse Ox 01/01/21 18:54 96.8 F L 86 16 131/80 H 99 Inital Vital Signs reviewed: Yes General: Well nourished, Well developed Head: NC, AT, - - Healed scar noted.. Negative for: Temporary Artery Tenderness, Vesicular Rash, Sinus Tenderness Eyes: Perrl, EOMI, - - There is no APD. There is no nystagmus.. Negative for: Pale conjunctiva, Scleral icterus ENT: Moist mucous membranes, No rhinorrhea, TM's clear Neck: Supple, No Lymphadenopathy, No JVD, Nontender, No Meningismus Cardiovascular: Regular rate, Regular rhythm, No murmurs, Normal S1, Normal S2 Respiratory: No distress, CTA bilaterally, Chest nontender Rectal: Deferred Back: Nontender Extremities: Nontender, No edema Skin: Normal color, No rash, No Trauma Neuro: Alert, Oriented x3, Cranial nerves II-XII grossly intact, Normal Strength, Normal Sensation, Normal DTR, Normal Gait, - - There is no dysmetria. There is no truncal ataxia. Psychological: Normal affect Diagnostic/Tx/Re-eval - Medical Decision Making Patient may be mildly dehydrated based on his history. IV fluids were ordered as well as IV Toradol, Benadryl and Reglan. Was reassessed at 2030. He is sitting up smiling. He states his headache is markedly better. He was asked if he feels comfortable going home. He states he would like to go home. ED Disposition - Plan for ED Patient: Disposition: Home or Assisted Living Diagnosis: Headache, migraine, intractable, Mild dehydration Instructions: ED, Migraine (Classical) Referrals: Camille Taylor MD [Primary Care Provider] - As Needed
[2021-01-01] MEDS: Metoclopramide 10 MG/2 ML Vial IV (19:50)
[2021-01-01] MEDS: DiphenhydrAMINE 50 MG/ML Syringe 25 MG IV (19:50)
[2021-01-01] MEDS: Ketorolac 15 MG/ML Vial IV (19:51)
== END 2021-01-01 20:40 | disposition home or self-care (01) ==
PROVIDERS: Emergency Provider Emergency Medicine; PCP Internal Medicine
DX: G43.919 Migraine, unspecified, intractable, without status migrainosus (principal); E86.0 Dehydration; F17.200 Nicotine dependence, unspecified, uncomplicated; Z87.820 Personal history of traumatic brain injury
CPT/HCPCS: 96374; 96375; 99283; A4216

== ENCOUNTER → 2021-04-04 10:21 | Outpatient (CLI) | payer MEDICAID, SELFPAY ==
[2021-04-04 09:58] VITALS: BMI 25.7
[2021-04-04 12:30] LABS: Absolute Lymphocyte Count 2.06 X10^3/uL (0.83-4.51); Basophil# 0.03 X10^3/uL; Basophil% 0.7 % (0-1); Eosinophil# 0.07 X10^3/uL; Eosinophils% 1.6 % (0-5); Hemoglobin 13.6 g/dL (13.0-16.5); Lymphocyte # 2.06 X10^3/ul (0.83-4.51); Mean Corpuscular Hgb 30.6 pg (27.0-32.0); Mean Corpuscular Volume 90.1 fL (80-94); Mean Platelet Vol. 8.3 fl (6.2-12.0); Monocyte# 0.36 X10^3/uL; NRBC Flagged by Analyzer 0 % (0-5); Neutrophil # 1.95 X10^3/uL (2.7-7.7); Neutrophil % 43.5 % (47-70); Platelet Count 309 K/mm3 (150-450); RBC Distribution Width CV 11.7 % (11.6-14.6); RBC Distribution Width SD 38.2 fl (35.1-43.9); Red Blood Count 4.44 M/mm3 (4.6-6.2); White Blood Count 4.5 K/mm3 (4.4-11.0)
[2021-04-04 13:12] LABS: ALB/GLOB Ratio 1.3 RATIO (0.9-2.4); AST(SGOT) 23 U/L (15-37); Alanine Aminotransfer ALT/SGPT 47 U/L (16-61); Albumin, Serum 4.3 g/dL (3.2-5.0); Alkaline Phosphatase 61 U/L (45-117); Anion Gap 6 (5-15); BUN 21 mg/dL (7-18); BUN/Creat Ratio 20.8 RATIO (10-20); Chloride 103 mmol/L (98-107); Cholesterol 174 mg/dL (200); Creatinine, Serum 1.01 mg/dL (0.70-1.30); EST Glomerular Filtration Rate 88 mL/min (>60); Est Glom Filt Rate - Afr Amer 106 mL/min (>60); Globulin 3.2 g/dL (2.2-4.2); Glucose 116 mg/dL (74-106); High Density Lipoprotein 69 mg/dL; Potassium 3.9 mmol/L (3.5-5.1); Protein, Total 7.5 g/dL (6.4-8.2); Sodium Level 138 mmol/L (136-145); Triglycerides 38 mg/dL; Very Low Density Lipoprotein 8 mg/dL (5-40)
== END ==
PROVIDERS: PCP Internal Medicine; Referring Provider Nurse Practitioner Family; Visit Provider Nurse Practitioner Family
DX: Z00.00 Encounter for general adult medical examination without abnormal findings (principal); G43.709 Chronic migraine without aura, not intractable, without status migrainosus
CPT/HCPCS: 36415; 80053; 80061; 84443; 85025

== ENCOUNTER → 2021-09-12 10:42 | Outpatient (CLI) | payer MEDICAID, SELFPAY ==
--- NOTE | 2021-09-12 10:45 | MRI_ITS ---
STUDY: MR MRCP WITHOUT CONTRAST REASON FOR EXAM: Male, 41 years old. Biliary and pancreatic dilatation, ruq pain TECHNIQUE: Standard MRCP technique was utilized. 3-D postprocessing images were reviewed. COMPARISON: None. FINDINGS: Gall Bladder: Normal with no distention or demonstrated fixed intraluminal filling defect. Cystic duct: Normal with no demonstrated fixed filling defect. Intrahepatic ducts: Mild central intrahepatic biliary ductal dilatation. No fixed filling defect or stricture. Common hepatic duct: Mildly dilated measuring up to 1 cm. No fixed filling defect or stricture. Common bile duct: Dilated measuring up to 1.2 cm in diameter. No fixed filling defect or stricture. Pancreatic duct: Mildly diffusely dilated measuring up to 4 mm in diameter. No fixed filling defect or stricture. MRI/MRCP Abdomen without Contrast IMPRESSION: Mild intra and extrahepatic biliary ductal dilatation as well as main pancreatic duct dilatation with no fixed filling defect or stricture seen. Consider ampulla of Vater pathology. Recommend ERCP. Electronically Signed: Arnoldo Putnam MD at 23:54 EST Tel , Service support ,
== END ==
PROVIDERS: PCP Internal Medicine; Referring Provider Nurse Practitioner Family; Visit Provider Nurse Practitioner Family
DX: K83.8 Other specified diseases of biliary tract (principal); R93.5 Abnormal findings on diagnostic imaging of other abdominal regions, including retroperitoneum
CPT/HCPCS: 74181

== ENCOUNTER 2021-09-30 07:45 | Day surgery (SDC) | payer MEDICAID, SELFPAY ==
--- NOTE | 2021-09-30 07:59 | PCM.HP.BLA ---
History and Physical Date of Admission: 09/30/21 Date of Service: 09/25/21 MR#:[id number]:[id number]: MARISOL PLAZA DEANRep #:[id number] Provider:Freddy Aguilar/Sex: 41/M [facility] Int[facility] Vital Signs 09/25/21 13:19 Height 6 ft Weight: 176 lb BMI 23.8 BP 135/77 H Blood Pressure Location Rt brachial Position Sitting Respiration 16 Intake Visit Reasons: COLONOSCOPY Chief Complaint: c-scope Home Care Manager Rn Required: No Is patient in pain?: Yes (ruq abd pain) Allergies No Known Allergies Allergy (Verified 09/25/21 13:20) Medications buprenorphine-naloxone 2 ea SUBLINGUAL DAILY 01/19/20 [History Confirmed 09/25/21] rimegepant 75 mg disintegrating tablet 75 mg PO ONCE PRN #15 tab 02/27/21 [Rx Confirmed 09/25/21] topiramate 25 mg tablet 25 mg PO DAILY #30 tab 04/04/21 [Rx Confirmed 09/25/21] sumatriptan succinate 50 mg tablet See Rx Instructions PO .COMPLEX #10 tab 05/27/21 [Rx Confirmed 09/25/21] ondansetron 4 mg disintegrating tablet 4 mg PO Q8H PRN #20 tab 09/17/21 [Rx Confirmed 09/25/21] pantoprazole 20 mg tablet,delayed release 20 mg PO DAILY #30 tab 09/17/21 [Rx Confirmed 09/25/21] PFSH Medical History Abnormal CT of the abdomen Anxiety and depression Back problem Cavitary lesion of lung Chronic back pain Chronic migraine desire for sterilization Dilation of biliary tract Encounter for preventative adult health care examination Epidermal inclusion cyst Frequent headaches History of blood transfusion History of traumatic brain injury Medial epicondylitis Poison imelda dermatitis PTSD (post-traumatic stress disorder) Surgical History History of brain surgery History of excision of mass Family History Father Colon cancer Other Anxiety History of blood transfusion Social History (Reviewed 09/25/21 @ 13:18 by Veda Montano Smoking Status: Current every day smoker alcohol intake: never substance use type: does not use what type of physical activity do you participate in: none HPI HPI HPI: MARISOL PLAZA, is a 41 M who presents to the office today for upper abdominal pain. Patient states he did have COVID however earlier this month he started to have right upper quadrant pain and currently it is now also on the left side. Patient states it is constant can range from dull to sharp. Currently patient rates it a -03/2010. Patient did have some occasional nausea and vomiting which may be about two times in the last 2 weeks. Otherwise patient states he is able to eat without any issues. Patient has been having diarrhea throughout the COVID infection is currently starting to solid up now a little more. Patient does go daily. Patient denies any blood in his stool or any urinary issues. Patient also complains of some increased thirst where he drinks several pops at once as patient does not drink much water at home only really at work. ROS General General: Yes weight change and fatigue; No appetite, colon cancer or breast cancer HEENT HEENT: No difficulty swallowing, eye injury, eye surgery, swollen glands or hoarseness Endo Endocrine: No thyroid disease, diabetes mellitus, thyroid cancer, Hair loss, heat intolerance or cold intolerance Skin Skin: No rash or changing moles Musc Musculoskeletal: Yes back problems; No arthritis, rheumatoid arthritis, gout or joint pain Cardio Cardiovascular: No murmur, pacemaker, heart disease, atrial fibrillation, high blood pressure, heart attack, heart stent, palpitations, shortness of breat with exertion or chest pain Psych Psychiatric: Yes depression and anxiety; No hearing voices Resp Respiratory: No shortness of breath, No sleep apnea, No cough, No COPD, No asthma, No emphysema and No wheezing Gastro Gastrointestinal: Yes abdominal pain, No nausea or vomiting, Yes diarrhea, No constipation, No blood in stool, Yes acid reflux, No hemorrhoids, No ulcers, No gallbladder problem and No black,tarry stools Terry Hematologic: No blood thinners, No blood disorders, No bleeding, No anemia and No blood clots Neuro Neurologic: No abnormal speech and No confusion Exam Const General: cooperative, healthy appearing, comfortable and no acute distress Neck Neck: normal visual inspection Resp Effort & Inspection: normal respiratory effort Cardio Rate: regular rate GI Inspection: non-distended Palpation: soft, no guarding and nontender Skin General: no rashes or lesions noted Neuro General: patient oriented x3 Psych Affect: normal affect Assessment and Plan Assessment and Plan (1) Bilateral upper abdominal pain: Status: Acute (2) Diarrhea: Status: Acute (3) History of COVID-19: Status: Acute (4) Dilation of biliary tract: Status: Acute Orders: Orders: Liver Profile Today K83.8 Plan - Dr. Amy Spencer MD: Did review patient's MRCP report with the patient and his significant other?shows some mild dilation of the common hepatic & common bile duct recommend ERCP. We will have patient follow-up with Dr. Robledo when he is back. We will check LFTs Patient will continue his Protonix given to him by his PCP. I have discussed the above with the patient. I have offered the patient EGD and colonoscopy for evaluation. I have explained the risks/benefits of the procedure and described the procedure. I have discussed the risks with the patient, including but not limited to: infection, bleeding, perforation of the GI tract requiring emergency surgery, inability to complete the procedure, injury to any internal organs, complications of anesthesia, etc. - the patient understands and agrees to proceed. I have answered all the patient's questions to the patient's satisfaction and the patient has no further questions. The patient has been given instructions for the colon cleansing preparation. 1 day of clears, MiraLAX Dulcolax split prep. Amy Spencer M.D. Pager: [phone] [facility] [address] [place] [address], [address] [place] [address] Office: [phone] Coding Level of Care Code Off vis,est,level 3 Diagnoses Bilateral upper abdominal pain R10.11; R10.12 Diarrhea R19.7 History of COVID-19 Z86.16 Dilation of biliary tract K83.8 09/25/21 1344<Electronically signed by Amy Spencer MD>Date Amy Spencer MD
[2021-09-30 08:43] VITALS: BP 114/76; PULSE 82; RESP 16; TEMP 36.8; O2SAT 97; BMI 24.3
[2021-09-30] MEDS: Lactated Ringers 1,000 ML 15 ML IV (08:55)
--- NOTE | 2021-09-30 09:30 | EGD_PTH ---
PATIENT: MARISOL PLAZA LOC: EN U#:[id number] AGE/SX: 41/M ROOM: RE09/30/[address]: Dr. Amy Spencer MD : 1980 BED: DIS: 09/30/2021 SPEC #: [id number] RECD: 09/30/21 11:21 STATUS: NIKOLAY MICHAEL #: [id number] MARIAH: 09/30/21 09:[address]: Amy Spencer DEPT: SURGICAL PATHOLOGY RECD BY: Marie Cox ENTERED: 09/30/21 11:49 SP TYPE: EGD BIOPSY DAY DR: Dr. Camille Taylor MD Tissues: A - Gastric mucous membrane B - Stomach, NOS Procedures: Special Stain Group II Surgery Specimen Level IV Alcian Blue/PAS (control) HEADER OPERATION: Attempted colonoscopy, EGD ([facility] [place] PRE-OP DIAGNOSIS: Bilateral upper abdominal pain TISSUE SUBMITTED: A ? Antrum biopsy for H. pylori and path, B ? GE junction biopsy MICROSCOPIC DIAGNOSIS A. Gastric antrum, biopsy: Minimal chronic inflammation. No focal intestinal metaplasia. No evidence of dysplasia. See comment. B. Gastroesophageal junction, biopsy: Mild chronic inflammation. Focal goblet cell metaplasia. No evidence of dysplasia. See comment. AM:kalyani 10/01/2021 COMMENT A. The results of immunohistochemistry for Helicobacter pylori will be reported separately ([id number]). Immunohistochemistry ([id number]) for P53 and Ki-67 will be performed and results will be reported separately. B. Alcian blue/PAS stain with matched control supports the above diagnosis. Immunohistochemistry ([id number]) for P53 and Ki-67 will be performed and results will be reported separately. MICROSCOPIC DESCRIPTION Slides are reviewed. GROSS DESCRIPTION A - Received in fixative is one container labeled with the patient's name and designated antrum biopsy. The specimen consists of one irregular fragment of light arrington soft tissue that measures 0.3 x 0.3 x 0.1 cm. The specimen is totally submitted in one cassette. B - Received in fixative is one container labeled with the patient's name and designated GE junction biopsy. The specimen consists of two irregular fragments of light arrington soft tissue that in aggregate measure 0.6 x 0.3 x 0.1 cm. The specimen is totally submitted in one cassette. / NOEMY:kalyani 09/30/2021 TC:3 CPT: 75829 x2, 32460
--- NOTE | 2021-09-30 09:30 | IMM_PTH ---
PATIENT: MARISOL PLAZA LOC: EN U#:[id number] AGE/SX: 41/M ROOM: RE09/30/[address]: Dr. Amy Spencer MD : 1980 BED: DIS: 09/30/2021 SPEC #: [id number] RECD: 09/30/21 13:04 STATUS: NIKOLAY MICHAEL #: [id number] MARIAH: 09/30/21 09:[address]: Amy Spencer DEPT: IMMUNOHISTOCHEMISTRY RECD BY: Batsheva Perez ENTERED: 09/30/21 13:04 SP TYPE: IMMUNO OTHR DR: Dr. Camille Taylor MD Tissues: A - Stomach, NOS B - Gastric mucous membrane Procedures: H Pylori (initial) KI-67 (add) P53 (add) KI-67 (initial) PHYSICIAN & INSTITUTION [place] [id number] SPECIMEN INFORMATION: Tissue Source: A ? Antrum biopsy, B ? GE junction biopsy Clinical Info: Bilateral upper abdominal pain Specimen Number: [id number] A & B CPT code: 61777 x2, 26814 x3 METHODOLOGY: Deparaffinized sections of prefer/formalin-fixed tissue or PAP/DQ stained slides are incubated with monoclonal/polyclonal antibodies/oligonucleotide probes. Localization is made via biotin free immunoperoxidase method. Appropriate controls are performed and reacted as expected. Results on target cell population are indicated in the following table: RESULTS: ANTIBODY / CLONE RESULT Block A H Pylori (polyclonal) negative P53 (DO-7) negative Ki-67 (30-9) positive, low Block B P53 (DO-7) negative Ki-67 (30-9) positive, low These tests were developed and their performance characteristics determined by [facility]. They may not have been cleared or approved by the U.S. Food and Drug Administration. The FDA has determined that such clearance or approval is not necessary. The above immunohistochemical/dualISH markers are ordered and reviewed by the pathologist. INTERPRETATION: A. Antrum biopsy: Negative for Helicobacter pylori organisms. No evidence of dysplasia. B. Gastroesophageal junction, biopsy: No evidence of dysplasia. AM:kalyani 10/02/2021
--- NOTE | 2021-09-30 11:13 | OP.CCLET_ITS ---
09/30/2021 Camille Taylor MD [address] [place] [address] [place] [address] Re : Upper GI endoscopy procedure for Yuri Andrade Dear Dr. Taylor This procedure was performed on Thursday, September 30, 2021. My impressions and recommendations are as follows: Impressions : - Z-line irregular, 40 cm from the incisors. Biopsied. - Erythematous mucosa in the gastric body and antrum. Biopsied. - Normal examined duodenum. Recommendations : - Await pathology results. - Discharge patient to home. - Use Protonix (pantoprazole) 40 mg PO daily. - Use sucralfate tablets 1 gram PO QID for 2 weeks. - Continue present medications. My findings are described in the full procedure note, which is enclosed. If I can be of further assistance, please feel free to contact me at Doctor phone number(s): , Work: . Sincerely, MD Amy Hernandez MD 09/30/2021 11:12:34 AM This report has been signed electronically.
--- NOTE | 2021-09-30 11:13 | OP.EGD_ITS ---
Patient Name: Yuri Andrade Procedure Date: 09/30/2021 10:42 AM Date of : 1980 Age: 41 Procedure: Upper GI endoscopy Indications: Epigastric abdominal pain, Abdominal pain in the right upper quadrant, Abdominal pain in the left upper quadrant Providers: Amy Spencer MD Medicines: Monitored Anesthesia Care Patient Profile: This is a 41 year old male. Complications: No immediate complications. Procedure: Pre-Anesthesia Assessment: - Prior to the procedure, a History and Physical was performed, and patient medications and allergies were reviewed. The patient's tolerance of previous anesthesia was also reviewed. The risks and benefits of the procedure and the sedation options and risks were discussed with the patient. All questions were answered, and informed consent was obtained. Prior Anticoagulants: The patient has taken no previous anticoagulant or antiplatelet agents. ASA Grade Assessment: Per anesthesia. After reviewing the risks and benefits, the patient was deemed in satisfactory condition to undergo the procedure. After obtaining informed consent, the endoscope was passed under direct vision. Throughout the procedure, the patient's blood pressure, pulse, and oxygen saturations were monitored continuously. The gastroscope was introduced through the mouth, and advanced to the second part of duodenum. The upper GI endoscopy was accomplished without difficulty. The patient tolerated the procedure well. Scope In: 10:53:20 AM Scope Out: 11:00:01 AM Total Procedure Duration Time 0 hours 6 minutes 41 seconds Findings: The Z-line was irregular and was found 40 cm from the incisors. Biopsies were taken with a cold forceps for histology. Striped moderately erythematous mucosa without bleeding was found in the gastric body and in the gastric antrum. Biopsies were taken with a cold forceps for Helicobacter pylori cultures. Biopsies were taken with a cold forceps for histology. The examined duodenum was normal. The cardia and gastric fundus were normal on retroflexion. Impression: - Z-line irregular, 40 cm from the incisors. Biopsied. - Erythematous mucosa in the gastric body and antrum. Biopsied. - Normal examined duodenum. Recommendation: - Await pathology results. - Discharge patient to home. - Use Protonix (pantoprazole) 40 mg PO daily. - Use sucralfate tablets 1 gram PO QID for 2 weeks. - Continue present medications. Procedure Code(s): --- Professional --- 33310, Esophagogastroduodenoscopy, flexible, transoral; with biopsy, single or multiple Diagnosis Code(s): --- Professional --- K22.8, Other specified diseases of esophagus K31.89, Other diseases of stomach and duodenum R10.13, Epigastric pain R10.11, Right upper quadrant pain R10.12, Left upper quadrant pain CPT copyright 2017 [employer]. All rights reserved. The codes documented in this report are preliminary and upon gas turbine powerplant mechanic review may be revised to meet current compliance requirements. MD Amy Hernandez MD 09/30/2021 11:12:34 AM This report has been signed electronically. Number of Addenda: 0 Note Initiated On: 09/30/2021 10:42 AM
[2021-09-30 11:15] VITALS: BP 104/67; BP 114/76; PULSE 68; RESP 16; TEMP 36.7; O2SAT 98
--- NOTE | 2021-09-30 11:18 | OP.COLON_ITS ---
Patient Name: Yuri Andrade Procedure Date: 09/30/2021 11:02 AM Date of : 1980 Age: 41 Procedure: Colonoscopy Indications: Clinically significant diarrhea of unexplained origin Providers: Amy Spencer MD Medicines: Monitored Anesthesia Care Patient Profile: This is a 41 year old male. Last Colonoscopy: none. The patient's first colonoscopy is today. Complications: No immediate complications. Procedure: Pre-Anesthesia Assessment: - Prior to the procedure, a History and Physical was performed, and patient medications and allergies were reviewed. The patient's tolerance of previous anesthesia was also reviewed. The risks and benefits of the procedure and the sedation options and risks were discussed with the patient. All questions were answered, and informed consent was obtained. Prior Anticoagulants: The patient has taken no previous anticoagulant or antiplatelet agents. ASA Grade Assessment: Per anesthesia. After reviewing the risks and benefits, the patient was deemed in satisfactory condition to undergo the procedure. After I obtained informed consent, the scope was passed under direct vision. Throughout the procedure, the patient's blood pressure, pulse, and oxygen saturations were monitored continuously. The colonoscope was introduced through the anus with the intention of advancing to the cecum. The scope was advanced to the rectum before the procedure was aborted. Medications were given. The colonoscopy was performed with difficulty due to poor bowel prep with stool present. The patient tolerated the procedure well. The quality of the bowel preparation was poor. Scope In: 11:00:20 AM Scope Out: 11:05:27 AM Total Procedure Duration Time 0 hours 5 minutes 7 seconds Findings: The perianal and digital rectal examinations were normal. Semi-solid stool was found in the rectum, precluding visualization. Impression: - Preparation of the colon was poor. - Stool in the rectum. - No specimens collected. Recommendation: - Discharge patient to home. - Resume previous diet. - Continue present medications. - Repeat colonoscopy at appointment to be scheduled because the bowel preparation was poor. Procedure Code(s): --- Professional --- 25363, 53, Colonoscopy, flexible; diagnostic, including collection of specimen(s) by brushing or washing, when performed (separate procedure) Diagnosis Code(s): --- Professional --- R19.7, Diarrhea, unspecified CPT copyright 2017 [employer]. All rights reserved. The codes documented in this report are preliminary and upon medical biller coder review may be revised to meet current compliance requirements. MD Amy Hernandez MD 09/30/2021 11:18:29 AM This report has been signed electronically. Number of Addenda: 0 Note Initiated On: 09/30/2021 11:02 AM
--- NOTE | 2021-09-30 11:20 | OP.CCLET_ITS ---
09/30/2021 Camille Taylor MD [address] [place] [address] [place] [address] Re : Colonoscopy procedure for Yuri Andrade Dear Dr. Taylor This procedure was performed on Thursday, September 30, 2021. My impressions and recommendations are as follows: Impressions : - Preparation of the colon was poor. - Stool in the rectum. - No specimens collected. Recommendations : - Discharge patient to home. - Resume previous diet. - Continue present medications. - Repeat colonoscopy at appointment to be scheduled because the bowel preparation was poor. My findings are described in the full procedure note, which is enclosed. If I can be of further assistance, please feel free to contact me at Doctor phone number(s): , Work: . Sincerely, MD Amy Hernandez MD 09/30/2021 11:18:29 AM This report has been signed electronically.
[2021-09-30 11:21] VITALS: BP 111/71; BP 114/76; PULSE 88; RESP 16; O2SAT 99
[2021-09-30 11:25] VITALS: BP 109/67; BP 114/76; PULSE 71; RESP 16; O2SAT 100
[2021-09-30 11:30] VITALS: BP 100/69; BP 114/76; PULSE 84; RESP 16; TEMP 36.2; O2SAT 100
[2021-09-30 12:07] VITALS: BP 114/76
== END 2021-09-30 23:59 | disposition home or self-care (01) ==
LOC: EN 07:46 → AC 07:46
PROVIDERS: PCP Internal Medicine; Referring Provider Internal Medicine; Visit Provider Surgery
PROC: 0DJD8ZZ Inspection of Lower Intestinal Tract, Via Natural or Artificial Opening Endoscopic (ICD-10-PCS; CPT 45378; principal; 2021-09-30 09:25)
DX: K29.50 Unspecified chronic gastritis without bleeding (principal); R19.7 Diarrhea, unspecified; G43.709 Chronic migraine without aura, not intractable, without status migrainosus; G89.29 Other chronic pain; F41.9 Anxiety disorder, unspecified; F32.A Depression, unspecified; F43.10 Post-traumatic stress disorder, unspecified; Z79.899 Other long term (current) drug therapy; Z86.16 Personal history of COVID-19; Z87.820 Personal history of traumatic brain injury; F17.200 Nicotine dependence, unspecified, uncomplicated
CPT/HCPCS: 45378; 43239; 88305; 88313; 88341; 88342; J7120; J2405

== ENCOUNTER → 2022-05-02 | Outpatient (CLI) | payer MEDICAID, SELFPAY ==
[2022-05-02 12:33] LABS: Absolute Neutrophil Count 2.9 X10^3/uL (2.0-7.7); Basophil# 0.04 X10^3/uL; Basophil% 0.8 % (0-1); Eosinophil# 0.12 X10^3/uL; Eosinophils% 2.3 % (0-5); Hematocrit 39.5 % (40-54); Hemoglobin 13.6 g/dL (13.0-16.5); Lymphocyte % 33.1 % (19-41); Mean Corp Hgb Conc 34.4 g/dL (32-36); Mean Corpuscular Hgb 31.4 pg (27.0-32.0); Mean Corpuscular Volume 91.2 fL (80-94); Mean Platelet Vol. 8.4 fl (6.2-12.0); Monocyte# 0.39 X10^3/uL; Monocyte% 7.6 % (0-10); NRBC Flagged by Analyzer 0 % (0-5); Neutrophil # 2.87 X10^3/uL (2.7-7.7); Platelet Count 261 K/mm3 (150-450); RBC Distribution Width CV 11.3 % (11.6-14.6); RBC Distribution Width SD 38.1 fl (35.1-43.9); Red Blood Count 4.33 M/mm3 (4.6-6.2); White Blood Count 5.1 K/mm3 (4.4-11.0)
[2022-05-02 13:06] LABS: ALB/GLOB Ratio 1.2 RATIO (0.9-2.4); AST(SGOT) 21 U/L (15-37); Alanine Aminotransfer ALT/SGPT 36 U/L (16-61); Albumin, Serum 4.2 g/dL (3.2-5.0); Alkaline Phosphatase 50 U/L (45-117); Anion Gap 6 (5-15); BUN 16 mg/dL (7-18); BUN/Creat Ratio 16.5 RATIO (10-20); Calcium,Total 9.3 mg/dL (8.5-10.1); Chloride 103 mmol/L (98-107); Cholesterol 168 mg/dL (200); Creatinine, Serum 0.97 mg/dL (0.70-1.30); EST Glomerular Filtration Rate 92 mL/min (>60); Est Glom Filt Rate - Afr Amer 111 mL/min (>60); Globulin 3.5 g/dL (2.2-4.2); Glucose 114 mg/dL (74-106); High Density Lipoprotein 68 mg/dL; Protein, Total 7.7 g/dL (6.4-8.2); Sodium Level 136 mmol/L (136-145); Thyroid Stim Hormone (TSH) 1.08 uIU/mL (0.358-3.74); Triglycerides 57 mg/dL; Very Low Density Lipoprotein 11 mg/dL (5-40)
== END | disposition home or self-care (01) ==
LOC: BIMLAB 10:08
PROVIDERS: PCP Internal Medicine; Referring Provider Nurse Practitioner Family; Visit Provider Nurse Practitioner Family
DX: Z00.00 Encounter for general adult medical examination without abnormal findings (principal)
CPT/HCPCS: 36415; 80053; 80061; 84443; 85025

== ENCOUNTER → 2025-06-14 | Outpatient (CLI) | payer OTHER, SELFPAY ==
[2025-06-14 11:39] LABS: Hematocrit 34.3 % (40-54); Hemoglobin 12.1 g/dL (13.0-16.5); Immature Granulocytes Count 0.030 X10^3/uL (0.0-0.0); Mean Corp Hgb Conc 35.3 g/dL (32-36); Mean Corpuscular Volume 88.4 fL (80-94); Mean Platelet Vol. 8.1 fl (6.2-12.0); NRBC Flagged by Analyzer 0 % (0-5); Platelet Count 292 K/mm3 (150-450); RBC Distribution Width CV 11.5 % (11.6-14.6); RBC Distribution Width SD 37.1 fl (35.1-43.9); Red Blood Count 3.88 M/mm3 (4.6-6.2); White Blood Count 5.6 K/mm3 (4.4-11.0)
[2025-06-14 12:13] LABS: AST(SGOT) 34 U/L (<=37); Alanine Aminotransfer ALT/SGPT 54 U/L (<=46); Albumin, Serum 4.5 g/dL (3.5-5.0); Alkaline Phosphatase 82 U/L (40-129); Anion Gap 12 (5-15); BUN 27 mg/dL (4-19); BUN/Creat Ratio 27.1 RATIO (10-20); Calcium,Total 9.4 mg/dL (7.6-11.0); Carbon Dioxide 24.0 mmol/L (21.0-32.0); Chloride 100 mmol/L (98-108); Cholesterol 181 mg/dL (<=200); Globulin 2.8 g/dL (2.2-4.2); Glucose 95 mg/dL (70-99); Low Density Lipoprotein Calc. 106 mg/dL; Potassium 4.2 mmol/L (3.3-5.1); Triglycerides 66 mg/dL; Very Low Density Lipoprotein 13 mg/dL (5-40); Vitamin B12 732 pg/mL (180-914); Vitamin D,25 Hydroxy 31.7 ng/mL (30-100); cholesterol:hdl ratio screen 2.92
== END | disposition home or self-care (01) ==
LOC: VSLAB 09:26
PROVIDERS: PCP Nurse Practitioner Family; Visit Provider Nurse Practitioner Family
DX: Z00.00 Encounter for general adult medical examination without abnormal findings (principal); E56.9 Vitamin deficiency, unspecified
CPT/HCPCS: 36415; 80053; 80061; 82306; 82607; 83036; 84443; 85025

== ENCOUNTER → 2025-08-02 | Outpatient (CLI) | payer OTHER, SELFPAY ==
[2025-08-02 12:11] LABS: AST(SGOT) 28 U/L (<=37); Alanine Aminotransfer ALT/SGPT 31 U/L (<=46); Albumin, Serum 4.8 g/dL (3.5-5.0); Alkaline Phosphatase 57 U/L (40-129); Anion Gap 9 (5-15); BUN 23 mg/dL (4-19); BUN/Creat Ratio 28.1 RATIO (10-20); Calcium,Total 9.4 mg/dL (7.6-11.0); Carbon Dioxide 25.9 mmol/L (21.0-32.0); Chloride 102 mmol/L (98-108); Ferritin 171 ng/mL (37-417); Globulin 2.7 g/dL (2.2-4.2); Glucose 113 mg/dL (70-99); Iron 150 ug/dL (65-175); Iron Binding Capacity,Total 316 ug/dL (250-450); Iron Binding Capacity,Unsat 166 ug/dL (228-428); Potassium 4.2 mmol/L (3.3-5.1)
[2025-08-02 12:16] LABS: FOLATES,SERUM (FOLIC ACID) 12.80 ng/mL (4.60-34.80)
[2025-08-03 04:22] LABS: HEPATITIS B SURFACE AG Negative (Negative); Hep C Antibodies Non Reactive (Non Reactive)
== END | disposition home or self-care (01) ==
LOC: VSLAB 10:16
PROVIDERS: PCP Nurse Practitioner Family; Referring Provider Nurse Practitioner Family; Visit Provider Nurse Practitioner Family
DX: D64.9 Anemia, unspecified (principal); R74.01 Elevation of levels of liver transaminase levels
CPT/HCPCS: 36415; 80053; 80074; 82728; 82746; 83540; 83550